=== PATIENT | male | born 1945 | race Caucasian/White ===

== ENCOUNTER 2018-10-02 11:17 | Emergency (ER) | payer OTHER ==
[~2018-10-02] VITALS: Ht 170.2 cm; Wt 68.2 kg
[2018-10-02 11:20] VITALS: Ht 170.2 cm; Wt 68.2 kg
[2018-10-02] MEDS ORDERED: MAGN400O19 GTB (11:40)
[2018-10-02] MEDS ORDERED: ACET325S GTB (11:40)
[2018-10-02] MEDS ORDERED: BISA10SU75 PR (11:41)
[2018-10-02] MEDS ORDERED: NA P230E RC (11:43)
[2018-10-02] MEDS ORDERED: FERR220S13 GTB (11:44)
[2018-10-02] MEDS ORDERED: HEPA500021 IJ (11:45)
[2018-10-02] MEDS ORDERED: IPRA3AMP29 INHALATION (11:53)
[2018-10-02] MEDS ORDERED: LACTINEX PO (11:54)
[2018-10-02] MEDS ORDERED: POLY17PO6 GTB (11:54)
[2018-10-02] MEDS ORDERED: MULT-105 GTB (11:55)
[2018-10-02] MEDS ORDERED: ONDA4TAB13 GTB (11:56)
[2018-10-02] MEDS ORDERED: OXYC-279 GTB (11:57)
[2018-10-02] MEDS ORDERED: PROT946L GTB (11:58)
[2018-10-02] MEDS ORDERED: CALC200T3 GTB (12:00)
[2018-10-02] MEDS ORDERED: CALC300T5 GTB (12:00)
[2018-10-02] MEDS ORDERED: ASC500 GTB (12:01)
--- NOTE | 2018-10-02 12:21 | ERD ---
ER Documentation Chief Complaint Chief Complaint INTERMITTENT BLEEDING FROM TRACH SITE HPI This is a 73-year-old male, nonambulatory and bedbound, chronic respiratory failure status post trach, dysphagia status post G-tube who is presenting from [facility] for concerns of intermittent bleeding from the trach over the past week. The patient is alert and does not report any complaints at this time. There is minimal dried blood around the trach, but there is no active bleeding. The patient is in no respiratory distress and oxygenating well. The patient denies feeling sick recently. The patient denies fever or chills. The patient has had no headache or vision changes. The patient does not endorse neck or back pain. The patient denies lightheadedness or dizziness. The patient has had no chest pain or trouble breathing. The patient denies nausea or vomiting. The patient denies abdominal pain. ROS All systems reviewed and are negative except as per history of present illness. Medications Home Meds Reported Medications Ascorbic Acid (Vitamin C) 500 Mg Tab, 500 MG GTB BID, TAB 10/02/18 Calcium Carbonate (Tums) 300 Mg Tab.chew, 300 MG GTB BID, TAB.CHEW 10/02/18 Calcium Carbonate (Tums) 200MG Calcium Chew, 1 TAB GTB BID, TAB.CHEW 10/02/18 Protein Supplement (Promod) 946 Ml Liquid, 30 ML GTB TID 10/02/18 Oxycodone HCl/Acetaminophen (Percocet 5-325 mg Tablet) 1 Each Tablet, 1 EACH GTB Q6H PRN for PAIN 1-04/13, TAB 10/02/18 Ondansetron Hcl* (Zofran*) 4 Mg Tab, 4 MG GTB Q6H PRN for NAUSEA AND OR VOMITING, TAB 10/02/18 Multivitamin with Minerals (Multivitamins with Minerals) 1 Each Tablet, 1 EACH GTB DAILY, TAB 10/02/18 Polyethylene Glycol* (Miralax*) 17 Gm Powd.pack, 17 GM GTB QHS, #30 PACKET 10/02/18 Lactobacillus Acidophilus* (Lactinex*) 1 Tab Chew, 1 TAB PO TID, TAB 10/02/18 Ipratropium-Albuterol (Ipratropium-Albuterol) 0.5-3 Mg/3 Ml Ampul.neb, 2.5 ML INHALATION Q2H PRN for SHORTNESS OF BREATH, #30 VIAL AND Q6H FOR 13 DAYS, START DATE 09/21/18 AND END DATE 10/04/18 10/02/18 Heparin Sodium,Porcine/Pf (HEPARIN SOD 5,000 UNIT/ 0.5 ML) 5,000 Unit/0.5 Ml Vial, 5000 UNIT IJ BID, VIAL 10/02/18 Ferrous Sulfate* (Ferrous Sulfate*) 220 Mg/5 Ml Solution, 7.5 ML GTB BID, ML 10/02/18 Na Phos,M-B/Na Phos,Di-Ba (Fleet Enema Extra) 230 Ml Enema, 118 ML RC Q72H PRN for NEEDED, ENEMA 10/02/18 Bisacodyl* (Bisacodyl*) 10 Mg Supp, 10 MG SD Q24H for CONSTIPATION, SUPP 10/02/18 Magnesium Hydroxide* (Milk Of Magnesia*) 400 Mg/5 Ml Oral.susp, 30 ML GTB Q24H for CONSTIPATION, ML 10/02/18 Acetaminophen* (Acetaminophen* Susp) 325 Mg/10.15 Ml Solution, 650 MG GTB Q6H PRN for PAIN LEVEL 1-10/10, ML AND FEVER T>101F 10/02/18 Allergies Allergies: Coded Allergies: No Known Allergy (Unverified , 10/02/18) PMhx/Soc History of Surgery: Yes (TRACH, G-TUBE) Hx Neurological Disorder: Yes (GENERALIZED WEAKNESS) Hx Miscellaneous Medical Probl: Yes (DYSPHAGIA) Smoking Status: Former smoker FmHx unable to obtain Physical Exam Vitals Vital Signs Date Temp Pulse Resp B/P (MAP) Pulse Ox O2 O2 Flow FiO2 Time Delivery Rate 10/02/18 79 17 117/68 100 Trach 13:07 (84) Collar 10/02/18 99.0 89 18 115/60 100 11:20 (78) Physical Exam Const: No apparent distress, well-developed, well-nourished Head: Normocephalic, Atraumatic Eyes: Normal Conjunctiva. Extraocular movements intact. Pupils equal, round and reactive to light ENT: Normal External Ears, Nose and Mouth. Neck: Full range of motion. No meningismus. Tracheostomy present, no active bleeding. Resp: Clear to auscultation bilaterally, No wheezes, rales or rhonchi. Cardio: Regular rate and rhythm. No murmurs, rubs or gallops Abd: Soft, non tender, non distended. Normal bowel sounds. G-tube present Skin: No petechiae or rashes Back: No midline tenderness. No CVA tenderness Ext: No cyanosis, or edema Neur: Awake and alert. Cranial nerves grossly intact. No facial droop. No obvious acute focal deficits. Procedures/MDM MDM The patient's presentation warrants further investigation. Previous medical records, if available, were reviewed. IMAGING Imaging and Radiology interpretation reviewed. CXR FINDINGS: The heart is not enlarged. Mediastinum is not widened. No hilar masses seen. Lungs are clear of any infiltrates. There is no effusion or pneumothorax. The osseous structures appear normal. There is a tracheostomy tube. IMPRESSION: No evidence for active cardiopulmonary disease. Electronically viewed and signed by .Levi Uribe MD, on 10/02/2018 11:45 TREATMENT/DISPOSITION The patient presents from a residential facility for concerns of a tracheostomy complication. There is no active bleeding from the tracheostomy site. The patient is in no respiratory distress. He is oxygenating well. I have very low suspicion for a tracheoinnominate fistula. The patient does not require any emergent treatment and may follow-up in an outpatient setting. A chest x-ray was completed. Any evidence of aspiration the patient's chest xray does not reveal any evidence of aspiration or focal pneumonia or pneumothorax or pleural effusions or pulmonary edema. The patient does not have a widened mediastinum and does not have signs or symptoms concerning for thoracic aortic aneurysm or dissection. The patient does not have pneumomediastinum or signs concerning for esophageal tear or rupture. The isabel ent has no clinical or radiographic signs of pericardial effusion or tamponade. The patient does not have pneumoperitoneum and I have decreased suspicion of viscus perforation as possible referred pain. DISCHARGE Upon reevaluation of the patient, symptoms have improved. No emergent diagnoses were identified. At this time, I feel that the patient stable for discharge. The patient was instructed to follow-up with a primary care physician in 1-3 days. The patient will be given strict precautions with which to return to the emergency department. Prescriptions: None The patient's blood pressure was elevated at greater than 120/80 while in the emergency department. The patient was otherwise stable with no evidence of hypertensive urgency or emergency. The patient does not require admission for blood pressure control. I have discussed with the patient the risks of hypertension. I have instructed the patient to return to the ER for any new or worsening symptoms including chest pain, shortness of breath, headache, blurred vision, confusion, nausea, vomiting or LOC. I have advised the patient to follow up with the primary care physician for outpatient monitoring and treatment for hypertension in 1-3 days. Disclaimer: Inadvertent spelling and grammatical errors are likely due to EHR/dictation software use and do not reflect on the overall quality of patient care. Note that the electronic time recorded on this note does not necessarily reflect the actual time of the patient encounter. Departure Diagnosis: Primary Impression: Tracheostomy complication Tracheostomy complication: stoma hemorrhage Qualified Codes: J95.01 - Hemorrhage from tracheostomy stoma Additional Impression: Tracheostomy care Condition: Stable Patient Instructions: Tracheostomy Care Additional Instructions: Thank you for for coming to [facility] for your care today. Please ask your nurse or provider if you have questions about your care today and do not leave until all your questions have been answered. Please use any medications given as directed and follow-up with your doctor (or the doctor you were referred to) in the next 1-3 days. If you do not have a primary care doctor you may follow up at the [facility] or [facility] (listed below). You may also use motrin and tylenol as needed for fever and/or pain unless instructed otherwise by your provider or nurse. Indications for more urgent follow-up have been discussed, but you may return to the Emergency Department at ANY time for any worrisome or worsening symptoms. If you have abdominal pain, please know that no test or exam you received is perfect and you should follow up within 8 hours for continued pain. If you had any imaging studies today, such as an X-Ray or CT Scan, these studies will be reviewed later by a radiologist. You will be called if there are important findings that were not identified today, so make sure the contact information you provided at registration is correct. If you received any narcotic pain control medicine today, such as Vicodin, Morphine or Dilaudid, your coordination and judgment may be affected for a number of hours. Please do not drive or operate heavy machinery, and you may want someone to assist you at home. If you were given a prescription for narcotic medication, be aware that it is very addictive- use sparingly and only if necessary. PLEASE SEEK FURTHER EVALUATION AND MANAGEMENT AT YOUR DOCTORS OFFICE WITHIN THE NEXT 1-3 DAYS. IT IS YOUR RESPONSIBILITY TO MAKE AN APPOINTMENT FOR FOLOW-UP CARE. IF YOU HAVE A PRIMARY DOCTOR, PLEASE CALL THEIR OFFICE TO SCHEDULE AN APPOINTMENT FOR FOLLOW UP. IF YOU DO NOT HAVE A PRIMARY DOCTOR YOU CAN CALL OUR PHYSICIAN REFERRAL HOTLINE AT IF YOU CAN NOT AFFORD TO SEE A PHYSICIAN YOU CAN CHOSE FROM THE FOLLOWING [facility]: [facility] [address] [facility]. [facility] [address] [facility] [address] [facility]. [facility] [address] [facility]. [facility] [address] [facility]. [facility]. [address] YOBANI GAMBINO MD Oct 02, 2018 12:21
[2018-10-02 15:23] VITALS: BP 121/74; PULSE 67; RESP 16
== END 2018-10-02 15:33 | disposition home or self-care (01) ==
LOC: E/R 11:17
DX: J95.01 Hemorrhage from tracheostomy stoma (principal); Z43.0 Encounter for attention to tracheostomy; Z79.01 Long term (current) use of anticoagulants; Z87.891 Personal history of nicotine dependence
CPT/HCPCS: 71045